=== PATIENT | male | born 1960 | race Hispanic/Latino ===

== ENCOUNTER → 2023-12-06 10:13 | Outpatient (REF) | payer BC, SELFPAY | LOC: RAD 10:13 | PROVIDERS: ATTENDING PHYSICIAN Nurse Practitioner Family; FAMILY PHYSICIAN Family Medicine | DX: M79.672 Pain in left foot (principal) | CPT/HCPCS: 73630 ==

== ENCOUNTER 2024-02-06 10:39 | Emergency (ER) | payer BC, SELFPAY ==
--- NOTE | 2024-02-06 10:50 | ED.GENMED ---
ED Provider Triage
-
Patient seen by provider in Triage?: Seen in Triage
Attestation: A medical screening examination has been initiated by a qualified medical provider. Based on the assessment performed at this time, it has been determined that an emergent medical condition may exist and the patient has been informed
that further medical evaluation and possible additional diagnostic testing may be needed.
HPI: 63yoM here with R groin pain starting last night. Hurts to walk. Denies testicle pain or lump. No flank pain or abd pain. +Nausea, no vomiting. Denies urinary symptoms. Hx of appendectomy and R inguinal hernia repair.
GENERAL: Alert , in no apparent distress
EYE: No visual abnormalities.
NECK: Trachea midline
ENT: No visible abnormalities.
LUNGS: No acute respiratory distress
NEUROLOGICAL: Alert and oriented
SKIN: Skin intact. No visible changes.
MUSCULOSKELETAL: Moving extremities normally
PSYCH: Normal and appropriate interaction.
This is a medical evaluation conducted in person to initiate diagnostic evaluation and provide initial therapeutics. Please see further documentation by the treating clinician.
No abdominal tenderness on exam. CBC, CMP, UA, and groin ultrasound ordered.
History of Present Illness
General
Chief Complaint: Abdominal Symptoms
Past History
Past History
ED Past Medical History: None
ED Past Surgical History: Appendectomy and Tonsilectomy
Social History
Tobacco: Non-smoker
Alcohol: None
Drug: None
Personal:
Living: with family
Course
Orders/Labs/Results
Orders:
Orders
02/06/24 10:58
Complete Blood Count/With Diff Urgent
Comprehensive Metabolic Panel Urgent
Urinalysis Reflex To Culture Urgent
US Groin (Imaging Only) RT Urgent
Comment:
Reason For Exam: R inguinal pain
Vital Signs
Initial and Last Documented VS:
Initial Vital Signs
Temp Pulse Resp BP Pulse Ox
98.4 F 79 16 176/88 98
02/06/24 10:52 02/06/24 10:52 02/06/24 10:52 02/06/24 10:52 02/06/24 10:52
Last Documented Vital Signs
Temp Pulse Resp BP Pulse Ox
98.4 F 79 16 176/88 98
02/06/24 10:52 02/06/24 10:52 02/06/24 10:52 02/06/24 10:52 02/06/24 10:52
ED Attending Note
-
Portions of this chart may have been created with voice recognition software.� Occasional wrong word or��sound alike� substitutions may have occurred due to the inherent limitations of voice recognition software.
Discharge Plan
Departure
Prescriptions:
No Action
hydrocodone-acetaminophen 15 ML solution
10 ml PO Q4HPRN PRN (Reason: throat pain) 0RF
metformin 500 MG tablet
500 mg PO BID Qty: 60 0RF
Interventions
Interventions:
*Risk Screen - Suicide Last Done: 02/06/24 10:52
*Neglect/Abuse Screening Last Done: 02/06/24 10:52
Discharge Date and Time
Print Language: HUNGARIAN
[2024-02-06 10:52] VITALS: BP 176/88
[2024-02-06 11:16] LABS: % Basophils 0.5 % (0-2); % Eosinophils 2.9 % (0-6); % Immature Granulocytes 0.6 % (0-0.5); % Lymphocytes 35.9 % (20.5-51.1); % Monocytes 9.1 % (1.7-9.3); Absolute Eosinophils 0.2 10^3/uL (0-0.7); Absolute Immature Granulocytes 0.1 10^3/uL (0-0.05); Absolute Lymphocytes 2.8 10^3/uL (1.2-3.4); Absolute Monocytes 0.7 10^3/uL (0.1-0.6); Hematocrit 42.5 % (39.0-52.0); Hemoglobin 14.8 g/dL (13.0-18.0); Mean Corp Hgb Conc. 34.8 g/dL (33.0-37.0); Mean Corpuscular Hgb 29.5 pg (27.0-31.0); Mean Corpuscular Volume 84.7 fL (80.0-94.0); Mean Platelet Volume 10.3 fL (7.4-10.4); Nucleated Red Blood Cells % 0 % (-); Platelet Count 296 10^3/uL (130-400); Red Blood Cell Count 5.02 10^6/uL (4.70-6.10); Red Cell Dist. Width 12.6 % (11.5-14.5); White Blood Cell Count 7.9 10^3/uL (4.8-10.8)
[2024-02-06 11:27] LABS: ALT (SGPT) 44 U/L (0-50); AST (SGOT) 33 U/L (17-59); Albumin 4.6 g/dl (3.5-5.0); Alkaline Phosphatase 75 U/L (38-126); Blood Urea Nitrogen 16 mg/dl (9-20); Calcium 9.1 mg/dl (8.4-10.2); Carbon Dioxide 26 mmol/L (22-30); Chloride 105 mmol/L (98-107); Glucose 150 mg/dl (70-99); Potassium 5.1 mmol/L (3.5-5.1); Sodium 138 mmol/L (135-145); Total Bilirubin 0.5 mg/dl (0.2-1.3); Total Protein 7.1 g/dl (6.3-8.2); eGFR > 60.00
[2024-02-06 12:09] VITALS: BMI 36.2
[2024-02-06 12:10] VITALS: BP 137/75
[2024-02-06 12:40] LABS: Urine Albumin Negative (Neg - Trace); Urine Bilirubin Negative (Negative); Urine Character Clear (Clear); Urine Color Yellow; Urine Glucose Negative (Negative); Urine Ketone Negative (Negative); Urine Leukocyte Negative (Negative); Urine Nitrite Negative (Negative); Urine Occult Blood Negative (Negative); Urine Urobilinogen Negative (Neg - 1+)
--- NOTE | 2024-02-06 13:52 | ED.GENMED ---
Addendum entered and electronically signed by Delfina Louise PA-C 02/06/24 16:41:
ED Provider Triage
-
Patient seen by provider in Triage?: Seen in Triage
Attestation: A medical screening examination has been initiated by a qualified medical provider. Based on the assessment performed at this time, it has been determined that an emergent medical condition may exist and the patient has been informed
that further medical evaluation and possible additional diagnostic testing may be needed.
HPI: 63yoM here with R groin pain starting last night. Hurts to walk. Denies testicle pain or lump. No flank pain or abd pain. +Nausea, no vomiting. Denies urinary symptoms. Hx of appendectomy and R inguinal hernia repair.
GENERAL: Alert , in no apparent distress
EYE: No visual abnormalities.
NECK: Trachea midline
ENT: No visible abnormalities.
LUNGS: No acute respiratory distress
NEUROLOGICAL: Alert and oriented
SKIN: Skin intact. No visible changes.
MUSCULOSKELETAL: Moving extremities normally
PSYCH: Normal and appropriate interaction.
This is a medical evaluation conducted in person to initiate diagnostic evaluation and provide initial therapeutics. Please see further documentation by the treating clinician.
No abdominal tenderness on exam. CBC, CMP, UA, and groin ultrasound ordered.
Original Note:
History of Present Illness
General
Chief Complaint: Abdominal Symptoms
Source: patient
Exam Limitations: none
Time Seen by Provider: 02/06/24 12:12
Nursing documentation reviewed up to this point in time: agreed with
History of Present Illness
History of Present Illness:
Patient is a 63-year-old male who presents to the ER complaining of right groin pain since last night. He notices discomfort while walking. He reports this is in his inguinal region and not his abdomen. He does have a history of inguinal hernia
repair around [address] [facility] with mesh. He denies any injury. Denies any fever or chills. He reports it hurts when he moves his leg and walks. He has not taken anything for this pain. Denies any redness to the area.
Past History
Past History
ED Past Medical History: None
ED Past Surgical History: Appendectomy and Tonsilectomy
Social History
Tobacco: Non-smoker
Alcohol: None
Drug: None
Personal:
Living: with family
Review of Systems
Review of Systems
Allergies reviewed?: Yes
All Other Systems: ROS reviewed and negative except as documented in HPI and ROS
Constitutional: Reports no symptoms; Denies fever, fatigue or chills
ABD/GI: Reports no symptoms; Denies abdominal pain or vomiting
: Reports no symptoms
Musculoskeletal: Reports other (right groin pain )
Skin: Reports no symptoms
Neurological: Reports no symptoms
Psychiatric: Reports no symptoms
Phy Exam
General Physical Exam
General Presentation: no apparent distress
General age: appears stated age
General Skin: warm and dry
General Habitus: normal
General Mental: alert
General Hydration: appears well hydrated
Cardiovascular Exam
Cardiovascular Exam: regular rate/rhythm, no murmur and normal peripheral pulses
Gastrointestinal Exam
Gastrointestinal Exam: normal bowel sounds, non tender, soft and other (Patient with normal inspection to right inguinal region no obvious mass visualized or palpated no hernia)
Neurological Exam
Neurological Exam: alert and oriented x3
Musculoskeletal Exam
Musculoskeletal Exam: other (Strong distal pulses right lower extremity full range of motion to right leg however with leg extension and lifting leg off the stretcher mild discomfort in right groin)
Skin Exam
Skin Exam: normal color and warm/dry
Psychiatric Exam
Psychiatric Exam: normal mood/affect
Course
Orders/Labs/Results
Orders:
Orders
02/06/24 10:58
US Groin (Imaging Only) RT Urgent
Comment:
Reason For Exam: R inguinal pain
02/06/24 11:05
Comprehensive Metabolic Panel Urgent
02/06/24 11:06
Complete Blood Count/With Diff Urgent
02/06/24 12:09
Urinalysis Reflex To Culture Urgent
Date Specimen was Collected: 02/06/24
Time Specimen was Collected: 12:05
02/06/24 13:52
Ibuprofen [Motrin] 600 mg PO NOW STA
Abnormal Lab Results
02/06/24 02/06/24
11:05 11:06
Abs Immat Gran (auto) 0.1 H 10^3/uL
(0-0.05)
Absolute Monos (auto) 0.7 H 10^3/uL
(0.1-0.6)
Immature Gran % 0.6 H %
(0-0.5)
Glucose 150 H mg/dl
(70-99)
02/06/24 11:06
02/06/24 11:05
Vital Signs
Initial and Last Documented VS:
Initial Vital Signs
Temp Pulse Resp BP Pulse Ox
98.4 F 79 16 176/88 98
02/06/24 10:52 02/06/24 10:52 02/06/24 10:52 02/06/24 10:52 02/06/24 10:52
Last Documented Vital Signs
Temp Pulse Resp BP Pulse Ox
98.4 F 77 19 137/75 96
02/06/24 10:52 02/06/24 12:10 02/06/24 12:10 02/06/24 12:10 02/06/24 12:10
Substation Maintenance Technician consulted with Physician
Substation Maintenance Technician consulted with physician?: Yes
Name of Physician Consulted: Olya
MDM/Problems Addressed
MDM/Problems Addressed:
Patient is a 63 male who present with right groin pain. Patient does have a history of hernia repair to this inguinal area years ago with mesh. He denies any actual injury. He denies any abdominal pain. On exam he is tender however there is no
mass palpated or visualized. Ultrasound was done prior to my exam and normal labs unremarkable patient is in no acute distress he has not taken any for pain. Likely muscular as patient does have pain with lifting leg off the stretcher however good
range of motion to have normal circulation normal distal sensation no obvious swelling or redness no evidence infection. He is nontoxic-appearing Case ED physician will DC with outpatient follow-up with ibuprofen.
*Critical Care Note
Total Time (30-74mins, 75-104mins- exclusive of procedures): Not Applicable
ED Attending Note
-
Portions of this chart may have been created with voice recognition software.� Occasional wrong word or��sound alike� substitutions may have occurred due to the inherent limitations of voice recognition software.
Discharge Plan
Departure
Patient Disposition: Home (Routine Discharge)
Date of Disposition: 02/06/24
Time of Disposition: 13:55
Patient with high blood pressure during this ER visit?: Yes
Condition: Fair
Covid-19: Not Applicable
Discharge Problem:
Groin pain
Instructions: Muscle, joint, and bone pain - Discharge instructions
Prescriptions:
No Action
hydrocodone-acetaminophen 15 ML solution
10 ml PO Q4HPRN PRN (Reason: throat pain) 0RF
metformin 500 MG tablet
500 mg PO BID Qty: 60 0RF
Referrals:
Ej Palmer MD [Family Provider] -
Activity Restrictions/Additional Instructions:
Ibuprofen 600 mg by mouth every 8 hrs with food for the next several days
Follow-up with your family doctor in the next several days and return if any worsening of symptoms.
Interventions
Interventions:
*Risk Screen - Suicide Last Done: 02/06/24 10:52
*General Assessment Last Done: 02/06/24 12:09
*Neglect/Abuse Screening Last Done: 02/06/24 10:52
ED- Fall Risk Assessment Last Done: 02/06/24 12:10
*ED COVID-19 Vaccine History Last Done: 02/06/24 12:09
*Nursing Disposition Last Done: 02/06/24 13:59
DF-Ermwdz-Cejdewgblk Assessment Last Done: 02/06/24 12:10
Discharge Date and Time
Discharge Date/Time: 02/06/24 13:59
Print Language: TAJIK
[2024-02-06] MEDS: MOTRIN 600 MG PO (13:56)
== END 2024-02-06 13:59 | disposition home or self-care (01) ==
LOC: EMR 10:39
PROVIDERS: Physician Assistant; EMERGENCY PHYSICIAN Emergency Medicine; FAMILY PHYSICIAN Family Medicine
DX: R10.31 Right lower quadrant pain (principal); R11.0 Nausea; R03.0 Elevated blood-pressure reading, without diagnosis of hypertension; G47.30 Sleep apnea, unspecified; Z88.0 Allergy status to penicillin
CPT/HCPCS: 99284; 76882; 80053; 81003; 85025

== ENCOUNTER → 2024-02-07 16:13 | Outpatient (REF) | payer BC, SELFPAY | LOC: RAD 16:13 | PROVIDERS: ATTENDING PHYSICIAN Family Medicine | DX: M25.551 Pain in right hip (principal) | CPT/HCPCS: 73502 ==

== ENCOUNTER 2025-01-06 19:53 | Emergency (ER) | payer BC, SELFPAY ==
[2025-01-06 19:55] VITALS: BP 189/98
[2025-01-06 20:49] VITALS: BMI 36.0
[2025-01-06 21:17] LABS: Urine Character Clear (Clear)
[2025-01-06] MEDS: TORADOL 30 MG IV (21:31)
[2025-01-06] MEDS: NSS 1000 IV (21:31)
[2025-01-06] MEDS: ZOFRAN 4 MG IV (21:31)
[2025-01-06 21:35] LABS: Urine White Cell 0-2 /HPF (0-5)
[2025-01-06 21:36] VITALS: BP 190/97
[2025-01-06 21:41] LABS: Hematocrit 41.6 % (39.0-52.0); Hemoglobin 14.6 g/dL (13.0-18.0); Mean Corp Hgb Conc. 35.1 g/dL (33.0-37.0); Mean Corpuscular Volume 84.6 fL (80.0-94.0); Nucleated Red Blood Cells % 0 % (-); Platelet Count 230 10^3/uL (130-400); Red Cell Dist. Width 12.4 % (11.5-14.5)
[2025-01-06 22:00] VITALS: BP 192/81
--- NOTE | 2025-01-06 22:00 | ED.GENMED ---
History of Present Illness
General
Chief Complaint: Flank Pain
Source: patient and spouse
Exam Limitations: none
Time Seen by Provider: 01/06/25 21:48
Nursing documentation reviewed up to this point in time: agreed with
History of Present Illness
History of Present Illness:
This is a 64-year-old gentleman with history of qak-cyhdnyh-zpnlykogx diabetes, hypertension, BPH, GERD who presents with 2-day history of left lower quadrant pain that radiates to his left back. Pain has been constant, progressively worsening.
Pain is worse with movement, improves mildly with lying still. He is notes nausea but has had no vomiting. No diarrhea or constipation. He denies dysuria nor urgency but does note some urinary frequency. No hematuria. He does note intermittent
mild chills, no myalgias. No cough no shortness of breath.
No history of similar episodes in the past.
Upon review of records, patient presented to this ED 2021 with complaints of right flank pain, urinary frequency. CT abdomen pelvis was unremarkable at that time. Labs noted elevated blood sugar of 250 noting newer onset mcg-vllfbqg-aphqtouqj
diabetes. She was started on metformin at that time and follow-up hemoglobin A1c was elevated at 8.5.
He follows regularly with PCP and has been maintained on metformin since that time. He states his diabetes has been fairly well-controlled.
Along with metformin he is maintained on lisinopril, finasteride, Protonix, as needed Cialis.
Past History
Past History
ED Past Medical History: GERD, HTN, NIDDM and Other (BPH)
ED Past Surgical History: Appendectomy (2013), Tonsilectomy and Other (Right inguinal hernia repair 2012)
Social History
Tobacco: Non-smoker
Alcohol: None
Drug: None
Personal:
Living: with family
Employment: Employed
Family History
Family History: Other (Noncontributory)
Phy Exam
Physical Exam
Physical Exam:
GENERAL: 64-year-old gentleman appears his stated age, awake and alert, pleasant, appears mildly uncomfortable related to pain. Easily communicative. is accompanying. Borderline low-grade fever at 99.5 �F.
EYE: anicteric
NECK: Supple, nontender, no meningismus, no significant adenopathy.
ENT: oral mucosa is moist. No rhinorrhea.
CARDIAC: Regular rate and rhythm. no murmur.
LUNGS: Clear breath sounds bilaterally, no acute respiratory distress, no wheezes/rales/rhonchi
ABDOMEN: Rotund, soft, nondistended, moderate tenderness left lower quadrant, left lateral flank as well as mild tenderness suprapubic region. No palpable masses. Moderate left CVA tenderness is noted. Normoactive BS.
NEUROLOGICAL: Alert and oriented x3, no focal neuro deficits.
SKIN: Warm and dry, normal color, skin intact. No rash.
MUSCULOSKELETAL: No C/C/E. peripheral pulses are full and equal b/l. No palpable tenderness.
PSYCH: Normal and appropriate interaction.
Course
Orders/Labs/Results
Orders:
Orders
01/06/25 20:50
IV Insert/Care/Rem.- Treatment PRN
01/06/25 21:03
Urinalysis Reflex To Culture Urgent
Date Specimen was Collected: 01/06/25
Time Specimen was Collected: 20:50
Urine Microscopic Reflex Cult Urgent
01/06/25 21:12
Ondansetron Injectable [Zofran] 4 mg IV NOW STA
01/06/25 21:13
0.9% Sodium Chloride 1000 ml [Nss] 1,000 ml IV BOLUS
Ketorolac [Toradol] 30 mg IV NOW STA
01/06/25 21:33
Complete Blood Count/With Diff Urgent
Comprehensive Metabolic Panel Urgent
Lipase Urgent
01/06/25 21:59
CT Abd/pelvis W Iv Cont Urgent
Comment:
Reason For Exam: LLQ pain x 2 days, Nausea
01/06/25 23:53
Oxycodone/Acetaminophen [Percocet 5/325] 1 tablet PO NOW STA
Abnormal Lab Results
01/06/25 01/06/25
21:03 21:33
WBC 13.3 H 10^3/uL
(4.8-10.8)
Absolute Neuts (auto) 9.6 H 10^3/uL
(1.4-6.5)
Absolute Monos (auto) 1.2 H 10^3/uL
(0.1-0.6)
Lymphocytes % 17.3 L %
(20.5-51.1)
Sodium 133 L mmol/L
(135-145)
Glucose 132 H mg/dl
(70-99)
ALT 73 H U/L
(0-50)
Urine Ketones 1+ A
(Negative)
Ur Occult Blood Reflex 2+ A
(Negative)
Urine RBC 11-15 A /HPF
(0-2)
Urine Bacteria (Reflex) Few A
(Negative)
Urine Albumin (Reflex) 2+ A
(Neg - Trace)
01/06/25 21:33
01/06/25 21:33
Vital Signs
Initial and Last Documented VS:
Initial Vital Signs
Temp Pulse Resp BP Pulse Ox
99 F 85 16 189/98 98
01/06/25 19:55 01/06/25 19:55 01/06/25 19:55 01/06/25 19:55 01/06/25 19:55
Last Documented Vital Signs
Temp Pulse Resp BP Pulse Ox
99.5 F 74 20 137/70 95
01/06/25 21:59 01/07/25 00:00 01/07/25 00:00 01/07/25 00:00 01/07/25 00:00
MDM/Problems Addressed
Differential Diagnosis Includes:
Concern for acute diverticulitis, other consideration is colitis, small bowel obstruction, kidney stone, UTI, pyelonephritis.
MDM/Problems Addressed:
Acute left lower quadrant abdominal pain, left flank pain
Acute nausea without vomiting. Limited oral intake over the past 2 days.
Significant concern for acute diverticulitis. Other considerations left ureteric stone, pyelonephritis.
Concern for potential dehydration, acute kidney injury as patient has had poor oral intake over the past 2 days.
Currently notes moderate improvement in pain and nausea after an IV dose of Toradol and Zofran.
IV fluids infusing.
Labs thus far notable for elevated white blood cell count of 13.3.
Chemistries are essentially unremarkable. Random glucose 132. Unremarkable electrolytes save for minimally low sodium of 133. ALT mildly elevated at 73, similar elevations noted previously.
Other than this all other LFTs within normal limits. Normal lipase.
Urinalysis shows microscopic hematuria with 11-15 RBCs, few bacteria. No WBCs. Not consistent with UTI. Could consider ureteric stone.
Will check CT abdomen pelvis with IV contrast.
Will continue IV fluids and pain medication as needed.
Chronic conditions affecting care: DM, HTN, Previous abdomnial surgery and Other (BPH)
*Radiology
Radiology exam reviewed: radiology read reviewed (CT shows 9 mm proximal left ureteral stone with mild hydronephrosis.)
*Pulse Oximetry
SaO2: 98
Oxygen Mode of Delivery: Room air
Patient hypoxic: no
*Critical Care Note
Total Time (30-74mins, 75-104mins- exclusive of procedures): Not Applicable
Update Note
Update Note:
23:50
Patient remains comfortable after 1 IV dose of Toradol.
Afebrile.
CAT scan shows 9 mm stone proximal UVJ with mild hydronephrosis.
Due to size of stone at the proximal ureter, case discussed with urology, Dr. Henry.
He request patient be discharged to home with plan for prompt outpatient follow-up. Will plan for follow-up in office on January 08.
Due to creatinine of 1.3, proximal stone will avoid any further NSAIDs and elect for opioid pain medication, Zofran for nausea.
Will initiate stool softener for constipation.
Strict return precautions discussed.
ED Attending Note
-
Portions of this chart may have been created with voice recognition software.� Occasional wrong word or��sound alike� substitutions may have occurred due to the inherent limitations of voice recognition software.
Discharge Plan
Departure
Patient Disposition: Home (Routine Discharge)
Date of Disposition: 01/07/25
Time of Disposition: 00:00
Patient with high blood pressure during this ER visit?: No
Condition: Good
Discharge Problem:
Calculus of proximal left ureter
Instructions: Kidney Stones (DC), Constipation in adults - ED (DC), Narcotic Pain Medication
Prescriptions:
New
oxycodone-acetaminophen [Percocet] 5-325 mg Tablet
1 tab PO Q4HPRN PRN (Reason: pain) Qty: 15 0RF
ondansetron 4 mg tablet,disintegrating
4 mg PO QID PRN (Reason: nausea and vomiting) Qty: 20 0RF
No Action
hydrocodone-acetaminophen 15 ML solution
10 ml PO Q4HPRN PRN (Reason: throat pain) 0RF
metformin 500 MG tablet
500 mg PO BID Qty: 60 0RF
Referrals:
Remigio Henry MD [Active, Urology] - 01/08/25
UNKNOWN - PT DOES,NOT KNOW [Unknown Provider]
Stand Alone Forms: Return to Work
Interventions
Interventions:
*Risk Screen - Suicide Last Done: 01/06/25 19:55
*General Assessment Last Done: 01/06/25 20:49
*Neglect/Abuse Screening Last Done: 01/06/25 19:55
*ED- Fall Risk Assessment Last Done: 01/06/25 20:49
*ED COVID-19 Vaccine History Last Done: 01/06/25 20:49
*ED Influenza Vaccine History Last Done: 01/06/25 20:49
*Nursing Disposition Last Done: 01/07/25 00:14
RF-Xtsajb-Xhmnkuuajj Assessment Last Done: 01/06/25 20:47
ED-Male Genitourinary Assessment Last Done: 01/06/25 20:47
Discharge Date and Time
Discharge Date/Time: 01/07/25 00:14
Print Language: UPPER SORBIAN
[2025-01-06 22:02] LABS: ALT (SGPT) 73 U/L (0-50); AST (SGOT) 41 U/L (17-59); Albumin 4.9 g/dl (3.5-5.0); Alkaline Phosphatase 88 U/L (38-126); Blood Urea Nitrogen 18 mg/dl (9-20); Calcium 9.6 mg/dl (8.4-10.2); Carbon Dioxide 25 mmol/L (22-30); Chloride 101 mmol/L (98-107); Estimated Creatinine Clearance 69 ml/min; Glucose 132 mg/dl (70-99); Lipase 89 U/L (23-300); Potassium 4.1 mmol/L (3.5-5.1); Sodium 133 mmol/L (135-145); Total Protein 7.8 g/dl (6.3-8.2); eGFR > 60.00
[2025-01-06 22:35] VITALS: BP 155/88
[2025-01-06 23:00] VITALS: BP 155/81
[2025-01-06 23:43] VITALS: BP 149/81
[2025-01-07] VITALS: BP 137/70
[2025-01-07] MEDS: PERCOCET 5/325 1 TABLET PO (00:07)
== END 2025-01-07 00:14 | disposition home or self-care (01) ==
LOC: EMR 19:53
PROVIDERS: EMERGENCY PHYSICIAN Emergency Medicine; FAMILY PHYSICIAN Family Medicine
DX: N13.2 Hydronephrosis with renal and ureteral calculous obstruction (principal); D72.829 Elevated white blood cell count, unspecified; E11.9 Type 2 diabetes mellitus without complications; I10 Essential (primary) hypertension; N40.0 Benign prostatic hyperplasia without lower urinary tract symptoms; K21.9 Gastro-esophageal reflux disease without esophagitis; Z79.84 Long term (current) use of oral hypoglycemic drugs
CPT/HCPCS: 99284; 96374; 96375; 96361; 74177; 80053; 81003; 81015; 83690; 85025; Q9967

== ENCOUNTER 2025-01-12 06:03 | Day surgery (SDC) | payer BC, SELFPAY ==
[2025-01-12] VITALS (7 sets, daily range): BP systolic 95–162; BP diastolic 52–87; BMI 36.0
[2025-01-12 06:43] LABS: Glucose - Point of Care 140 mg/dl (70-99)
[2025-01-12] MEDS: NORMOSOL-R/PLASMALYTE-A 1000 IV (06:44)
[2025-01-12 08:04] LABS: Glucose - Point of Care 127 mg/dl (70-99)
[2025-01-12] MEDS: FLOMAX 0.4 MG PO (08:36)
== END 2025-01-12 09:40 | disposition home or self-care (01) ==
LOC: SDS 06:03
PROVIDERS: ATTENDING PHYSICIAN Specialist
DX: N20.1 Calculus of ureter (principal)
CPT/HCPCS: 52352; 52332; 74018; 76000; 82962; C1758; C1894

== ENCOUNTER 2025-01-26 07:08 | Day surgery (SDC) | payer BC, SELFPAY ==
[2025-01-26] VITALS (9 sets, daily range): BP systolic 117–175; BP diastolic 70–93; BMI 36.0
[2025-01-26 11:04] LABS: Glucose - Point of Care 112 mg/dl (70-99)
[2025-01-26] MEDS: NORMOSOL-R/PLASMALYTE-A 1000 IV (11:12)
[2025-01-26 13:19] LABS: Glucose - Point of Care 93 mg/dl (70-99)
[2025-01-26] MEDS: ROXICODONE 5 MG PO (14:58)
== END 2025-01-26 15:03 | disposition home or self-care (01) ==
LOC: SDS 07:08
PROVIDERS: ATTENDING PHYSICIAN Specialist
DX: N20.1 Calculus of ureter (principal)
CPT/HCPCS: 52352; 52332; 74018; 76000; 82365; 82962